=== PATIENT | female | born 1975 | race Caucasian/White ===

== ENCOUNTER → 2022-11-17 16:32 | Outpatient (CLI) | payer OTHER, SELFPAY ==
--- NOTE | ~2022-11-17 | MM_ITS ---
EXAMINATION: MM screening [facility] HISTORY: Screening mammogram TECHNIQUE: Craniocaudal and mediolateral oblique 3-D tomosynthesis images were obtained and synthetic 2-D images were generated. CAD analysis was submitted and interpreted. COMPARISON: No prior mammogram is available for comparison at this institution. BREAST PARENCHYMAL COMPOSITION: There are scattered areas of fibroglandular density. FINDINGS: There is no evidence of suspicious mass, calcification, or architectural distortion to sugg est malignancy in either breast. There has been no suspicious interval change. IMPRESSION: 1. No mammographic evidence of malignancy. 2. Recommend routine screening mammography in one year. BI-RADS Category 1: Negative Reviewed, dictated and finalized at location A. [employer]CHNIC[employer]
== END ==
PROVIDERS: PCP Family Medicine; Visit Provider Student in an Organized Health Care Education/Training Program
DX: Z12.31 Encounter for screening mammogram for malignant neoplasm of breast (principal)
CPT/HCPCS: 77063; 77067

== ENCOUNTER 2024-08-13 13:47 | Emergency (ER) | payer BC, SELFPAY ==
[2024-08-13 14:21] VITALS: BP 144/82; PULSE 87; RESP 16; TEMP 36.5; O2SAT 99
--- NOTE | 2024-08-13 14:43 | ED.URI ---
HPI - URI/Sore Throat General Chief Complaint: Upper Respiratory Infection Stated Complaint: white spots,headache,scratchy throat History of Present Illness HPI Narrative: 49-year-old female presented for complaint of sore throat and nasal congestion, onset yesterday. Endorses white spots on throat this morning. Also reports a headache for 1 week. 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 Denies nausea, vomiting, diarrhea, fevers or chills. Has used essential oils and salt water gargles, nasal rinse and ibuprofen. Related Data Home Medications Medication Instructions Recorded Confirmed levothyroxine 125 mcg tablet 137 mcg PO DAILY 08/20/23 08/13/24 (Synthroid) losartan 50 mg tablet mg 08/13/24 montelukast 10 mg tablet mg 08/13/24 Allergies Allergy/AdvReac Type Severity Reaction Status Date / Time Sulfa (Sulfonamide Allergy Intermediate Hives Verified 08/13/24 14:47 Antibiotics) Penicillins AdvReac Nausea and Verified 08/13/24 14:48 Vomiting Review of Systems Review of Systems: CONSTITUTIONAL: Denies body aches, fever, chills, or sweats. EYES: Denies visual changes, redness, or discharge. ENT:reports rhinorrhea, congestion, sore throat CARDIOVASCULAR: Denies chest pain, palpitations, or edema. RESPIRATORY: Denies dyspnea. GASTROINTESTINAL: Denies abdominal pain, nausea, vomiting, or diarrhea. SKIN: Denies rash, itching, or wounds. MUSCULOSKELETAL: Denies back pain, joint pain, or myalgia. NEUROLOGIC: reports headache PMFSH Past Medical History Medical History Lily's disease Migraines Ovarian cyst ovarian cyst removed 2009 Screening mammogram, encounter for Surgical History Surgical History Delivery by section History of gynecological procedure ovarian cystectomy Hx of adenoidectomy Family History Family History Mother Cerebrovascular accident Hypertension Heart disease Dementia Father Malignant neoplasm of prostate Dementia Social History Social History Smoking status: Never smoker Alcohol intake: current Alcohol use details: social Substance use type: marijuana Lack of Transportation: No Lack of Food: Never True Current Housing: I Have Housing Concerned About Future Housing: No Difficulty Paying Gas/Electric Bills: No Difficulty Paying for Meds: No Currently Unemployed: No Education: Trade/Vocational Certificate Difficulty w/ Childcare or Family Care: No Living arrangements: with family Additional living arrangements comments: Occupation/Education: occupation 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 EYES: conjunctivae clear ENT: Mucous membranes moist. TMs pearly high with normal light reflex bilaterally; no tragal tenderness. Oropharynx mildly erythematous without lesions. Tonsils enlarged 1+ with exudate vs stones. No drooling, no hoarseness, no trismus, uvula midline. No tripod positioning, hot potato voice, or soft palate swelling. NECK: Supple. bilateral anterior cervical lymphadenopathy CHEST: Clear to auscultation, breath sounds equal. No respiratory distress, speaks in full sentences. HEART: Regular rate and rhythm. No murmur heard. SKIN: Warm, dry, no rash. NEURO: Alert and oriented x3. Course Course Emergency Course: Patient is aware of diagnosis, understands and agrees to treatment plan. Anticipatory guidance given. Patient agrees to follow-up as directed and is aware of reasons to seek care at the emergency department. Portions of this record may have been created with voice recognition software Level of Care: Express Care Visit Vital Signs Vital signs: Vital Signs Temperature 97.7 F 08/13/24 14:21 Pulse Rate 87 08/13/24 14:21 Respiratory Rate 16 08/13/24 14:21 Blood Pressure 144/82 H 08/13/24 14:21 Pulse Oximetry 99 08/13/24 14:21 Temperature 97.7 F 08/13/24 14:21 Pulse Rate 87 08/13/24 14:21 Respiratory Rate 16 08/13/24 14:21 Blood Pressure 144/82 H 08/13/24 14:21 Pulse Oximetry 99 08/13/24 14:21 MDM - URI/Sore Throat MDM Narrative Medical decision making narrative: neg strep result reviewed with pt. Pt states she will continue her essential oils. Discussed possibility of tonsillar stones. Advise supportive treatments. Patient is appropriate for outpatient treatment and follow-up. Differential Diagnosis Differential diagnosis: Likely upper respiratory infection, viral infection and pharyngitis Discharge Plan Discharge Clinical Impression: Pharyngitis Patient Disposition: Home, Self-Care Condition: Stable Instructions: Antibiotic Form, Pharyngitis (ED) Additional Instructions: Rapid strep swab was negative today You will be notified in a few days if the culture comes back positive for strep, and appropriate antibiotics will be called in at that time. if symptoms are due to a viral illness, it is not treated with antibiotics. Viral symptoms can be present for up to 10-14 days. Recommend Flonase spray and Zyrtec for sinus congestion Cough syrup may cause drowsiness; avoid driving or take it at night time. Tylenol every 8 hours as needed for pain/fever Soft foods, cool liquids, warm tea. Gargle with warm saltwater twice a day. Chloraseptic spray and throat lozenges. Rest and stay hydrated. --Follow up with your PCP --Go to the ER immediately if you cannot swallow your saliva, trouble breathing/wheezing, throat swelling, pain is persistent and severe Prescriptions: No Action levothyroxine [Synthroid] 125 mcg tablet 137 mcg PO DAILY Nortrel (28) 0.5/0.75/1 mg- 35 mcg tablet 1 tablet PO DAILY Qty: 168 1RF Follow-up/Referrals: Nancy,Anders Donahue MD [Primary Care Provider] - Time of Disposition: 14:52
[2024-08-13 15:03] LABS: EDSTREPNEGPOS1 Negative (Negative)
== END 2024-08-13 15:00 | disposition home or self-care (01) ==
PROVIDERS: Emergency Provider Nurse Practitioner Family; PCP Family Medicine
DX: J02.9 Acute pharyngitis, unspecified (principal); E06.3 Autoimmune thyroiditis
CPT/HCPCS: 87081; 87880; 99213; G0463

== ENCOUNTER 2024-08-22 14:21 | Outpatient (CLI) | payer BC, SELFPAY ==
--- NOTE | ~2024-08-22 | MM_ITS ---
EXAMINATION: MM screening [facility] BI w luz HISTORY: Screening mammogram TECHNIQUE: Craniocaudal and mediolateral oblique 3-D tomosynthesis images were obtained and synthetic 2-D images were generated. CAD analysis was submitted and interpreted. COMPARISON: 11/17/2022 BREAST PARENCHYMAL COMPOSITION:Not Dense. There are scattered areas of fibroglandular density. FINDINGS: No suspicious mass, calcification, or architectural distortion are identified in either francine ast to suggest malignancy. There has been no suspicious interval change. IMPRESSION: No mammographic evidence of malignancy. Recommend routine screening mammography in one year. BI-RADS Category 1: Negative Reviewed, dictated and finalized at location . [employer]
== END 2024-08-22 14:22 | disposition home or self-care (01) ==
LOC: MICIMG 14:23
PROVIDERS: PCP Family Medicine
DX: Z12.31 Encounter for screening mammogram for malignant neoplasm of breast (principal)
CPT/HCPCS: 77063; 77067

== ENCOUNTER 2025-08-28 16:10 | Outpatient (CLI) | payer OTHER, SELFPAY ==
--- NOTE | ~2025-08-28 | MM_ITS ---
EXAMINATION: MM screening [facility] BI w luz HISTORY: Screening TECHNIQUE: Craniocaudal and mediolateral oblique 3-D tomosynthesis images were obtained and synthetic 2-D images were generated. CAD analysis was submitted and interpreted. COMPARISON: Comparison to multiple prior studies sequentially, with oldest reviewed study dated 11/17/2022. BREAST PARENCHYMAL COMPOSITION: Not dense: There are scattered areas of fibroglandular density. FINDINGS: There is no evidence of suspicious mass, calcification, or architectural distortion to suggest malignancy in either breast. There has been no suspicious interval change. IMPRESSION: 1. No mammographic evidence of malignancy. 2. Recommend routine screening mammography in one year. BI-RADS Category 1: Negative Reviewed, dictated and finalized at location O. [employer]
== END 2025-08-28 16:11 | disposition home or self-care (01) ==
LOC: MICIMG 16:12
PROVIDERS: PCP Family Medicine
DX: Z12.31 Encounter for screening mammogram for malignant neoplasm of breast (principal)
CPT/HCPCS: 77063; 77067